=== PATIENT | male | born 1985 | race Caucasian/White ===

== ENCOUNTER 2016-07-06 08:15 | Day surgery (SDC) | payer BC ==
[2016-07-06] VITALS (7 sets, daily range): BP systolic 103–150; BP diastolic 65–96; PULSE 89–113; RESP 15–20; TEMP 97.5–98.8; O2SAT 95–97; Ht 167.6 cm; Wt 89.8 kg
[~2016-07-06] VITALS: Ht 167.6 cm; Wt 89.8 kg
[~2016-07-06 08:15] MED LIST: ALBU8.5H INH; ALPR1TAB7 PO; AMIT10TA6 PO; BUSP7.5T7 PO; LIDOCAINE 1% (10mg/ml) 2ml SDV INJ ONE; LR 1,000 ML IV SCH; MULT-933 PO; PROPOFOL 500mg 50 ML IV ONE
[2016-07-06] MEDS ORDERED: ALFENTANIL 500mcg/ml - 2ml INJECTION ONE (08:21)
--- OUTSIDE RECORDS SUMMARY | 2016-07-06 08:39 | XMS REPORT ---
Author Alexandre Garcia Organization [employer] Address Unknown Phone Unavailable Care Team Providers Care Freight Elevator Erector Name Role Phone Alexandre Lu CP Unavailable Allergies No Known Allergies Problems Problem Type Condition ICD-9 Code Onset Dates Condition Status Problem Anxiety disorder 300.00 Active Problem Chronic headaches 784.0 Active Problem LO (obstructive sleep apnea) 327.23 Active Medications No Known Medications Results No Known Results Summary Purpose eClinicalWorks Submission
--- OUTSIDE RECORDS SUMMARY | 2016-07-06 08:39 | XMS REPORT ---
Author Alexandre Garcia Organization [employer] Address Unknown Phone Unavailable Care Team Providers Care Ict Systems Test Engineer Name Role Phone Alexandre Lu CP Unavailable Allergies No Known Allergies Problems No Known Problems Medications No Known Medications Results No Known Results Summary Purpose eClinicalWorks Submission
--- OUTSIDE RECORDS SUMMARY | 2016-07-06 08:39 | XMS REPORT ---
Author Author Alexandre Lu Organization [employer] Address Unknown Phone Unavailable Care Team Providers Care Trading Specialist Name Role Phone Alexandre Lu CP Unavailable Allergies No Known Allergies Problems No Known Problems Medications No Known Medications Results No Known Results Summary Purpose eClinicalWorks Submission
--- OUTSIDE RECORDS SUMMARY | 2016-07-06 08:39 | XMS REPORT ---
Author Alexandre Garcia Organization [employer] Address Unknown Phone Unavailable Care Team Providers Care Fundraising Sale Representative Name Role Phone Alexandre Lu CP Unavailable Allergies No Known Allergies Problems No Known Problems Medications No Known Medications Results No Known Results Summary Purpose eClinicalWorks Submission
--- OUTSIDE RECORDS SUMMARY | 2016-07-06 08:39 | XMS REPORT ---
Author Alexandre Garcia Organization [employer] Address Unknown Phone Unavailable Care Team Providers Care Pearl Technician Name Role Phone Alexandre Lu CP Unavailable Allergies No Known Allergies Problems No Known Problems Medications No Known Medications Results No Known Results Summary Purpose eClinicalWorks Submission
--- OUTSIDE RECORDS SUMMARY | 2016-07-06 08:39 | XMS REPORT | Referral Summary ---
Author Author [facility] Organization [facility] Address Unknown Phone Unavailable Care Team Providers Care Car Sales Associate Name Role Phone [facility] Valencia Primary Care Physician [phone] Encounter VC Date(s): 03/02/16 - 03/02/16 [facility] [address] [place] [address]- Discharge Diagnosis: MRSA carrier Discharge Diagnosis: MRSA infection Discharge Disposition: 01-Home or Self Care Attending Physician: Newton Valencia DO Admitting Physician: Newton Valencia DO Vital Signs Most recent to 1 oldest [Reference Range]: Temperature Tympanic 36.3 degC [36.6-38.1 degC] *LOW* (03/02/16 2:03 PM) Peripheral Pulse 103 bpm Rate [60-100 bpm] *HI* (03/02/16 2:03 PM) Blood Pressure 124/89 mmHg [90-140/60-90 mmHg] (03/02/16 2:03 PM) Problem List Condition Effective Dates Status Health Status Informant Acute Active appendicitis(Confirm ed) Anxiety(Confirmed) Active Chronic Active appendicitis(Confirm ed) Migraine Active headache(Confirmed) Allergies, Adverse Reactions, Alerts Substance Reaction Severity Status Allergy Seasonal allergies Active cefaclor Anaphylaxis Active ketorolac Eczema (rash) Active Medications amitriptyline 10 mg oral tablet 20 mg 2 tabs, Oral, Daily, # 60 tabs, 1 Refill(s), Pharmacy: [facility], 2 tabs Oral Daily Start Date: 02/07/16 Status: Ordered amitriptyline 10 mg oral tablet 10 mg 1 tabs, Oral, Bedtime (once a day), # 30 tabs, 0 Refill(s), Pharm[facility]: [id number], 1 tabs Oral Bedtime (once a day),x30 days Start Date: 01/21/16 Stop Date: 02/20/16 Status: Ordered Bactrim DS 800 mg-160 mg oral tablet 1 tabs, Oral, BID, X 10 days, # 20 tabs, 0 Refill(s), Pharmacy: [place] [id number] Start Date: 03/02/16 Stop Date: 03/12/16 Status: Ordered Bactroban 2% topical ointment 1 roberto, Topical, TID, # 30 g, 0 Refill(s), Pharmacy: [place] [id number] Start Date: 03/02/16 Stop Date: 03/12/16 Status: Ordered busPIRone 7.5 mg oral tablet 7.5 mg 1 tabs, Oral, Daily, # 30 tabs, 0 Refill(s), other reason (Rx) Start Date: 12/22/15 Stop Date: 01/21/16 Status: Ordered Results No data available for this section Immunizations Vaccine Date Refusal Reason influenza virus vaccine, inactivated 01/21/16 Procedures Procedure Date Related Diagnosis Body Site Laparoscopic appendectomy 2014 Appendectomy Lipoma Surgery1 1septoplasty Social History Social History Type Response Smoking Status Never smoker Assessment and Plan Extracted from: Title: Office Visit Note Author: Newton Valencia DO Date: 03/02/16 Assessment/Plan 1.MRSA infection 1. Clinical finding consistent with folliculitis and carbuncles to the inner thigh. With a positive throat culture for MRSA, this is most likely the cause of his skin infection. 2. Bactrim twice a day for 10 days 3. Bactroban application intranasally 3 times a day for 10 days 4. Follow-up for any new concerns Ordered: Office Visit Level 3 Est 58695 MRSA carrier Pathophysiology of this presentation discussed in detail with the patient. Ordered: mupirocin topical, 1 roberto, Topical, TID, # 30 g, 0 Refill(s), Pharmacy: [place] [id number] sulfamethoxazole-trimethoprim, 1 tabs, Oral, BID, X 10 days, # 20 tabs, 0 Refill(s), Pharmacy: [place] [id number] Office Visit Level 3 Est 48[address]
--- OUTSIDE RECORDS SUMMARY | 2016-07-06 08:39 | XMS REPORT ---
Author Author Alexandre Lu Organization [employer] Address Unknown Phone Unavailable Care Team Providers Care Movement Therapist Name Role Phone Alexandre Lu CP Unavailable Allergies No Known Allergies Problems No Known Problems Medications No Known Medications Results No Known Results Summary Purpose eClinicalWorks Submission
--- OUTSIDE RECORDS SUMMARY | 2016-07-06 08:39 | XMS REPORT ---
Author Alexandre Garcia Organization [employer] Address Unknown Phone Unavailable Care Team Providers Care Friction Paint Machine Tender Name Role Phone Alexandre Lu CP Unavailable Allergies No Known Allergies Problems Problem Type Condition Code Onset Dates Condition Status Problem Anxiety disorder 300.00 Active Problem Chronic headaches 784.0 Active Problem LO (obstructive sleep apnea) 327.23 Active Medications No Known Medications Results No Known Results Summary Purpose eClinicalWorks Submission
--- OUTSIDE RECORDS SUMMARY | 2016-07-06 08:39 | XMS REPORT ---
Author Alexandre Garcia Organization [employer] Address Unknown Phone Unavailable Care Team Providers Care Laundry Tech Name Role Phone Alexandre Lu CP Unavailable Allergies No Known Allergies Problems No Known Problems Medications No Known Medications Results No Known Results Summary Purpose eClinicalWorks Submission
--- OUTSIDE RECORDS SUMMARY | 2016-07-06 08:39 | XMS REPORT | Continuity of Care Document ---
Author Author Celso KUMAR, Soheila Cain Organization Ambulatory Address [facility] [place] [address] Phone Unavailable Care Team Providers Care Design Draftsman Name Role Phone Carlita Zaragozaantonio ALLEN Unavailable Payers Payer name Insurance type Covered democrat ID Authorization(s) Unknown Problems Condition Effective Dates (start - stop) Clinical Status Residual foreign body in soft tissue - *Acute MGRN WO [facility] MGR - *Chronic Urinary Tract Infection - *Acute Family History Family Member Diagnosis Age At Onset Status Unknown Social History Social History Element Description Quantity Unknown Allergies, Adverse Reactions, Alerts Substance Reaction Severity Status KETOROLAC TROMETHAMINE Unknown MONTELUKAST SODIUM Unknown CEFACLOR Unknown Medications Medication Instructions Dosage Effective Dates (start - stop) Status Unknown Immunizations Vaccine Date Status Comments Unknown Results Test Name Date and Time Measure Units Reference Range Abnormal Flag Comments Unknown Vital Signs Date / Time: Height Weight Pulse Rate Blood Pressure Temperature /17:41:00 66.00 in 175.00 lbs 101 /min 132/91 mm[Hg] 98.2 F Procedures Procedure Date Unknown Encounters Encounter Location Date Patient Visit [facility] Care Patient Visit [facility] [facility] Care Patient Visit [facility] Care Advance Directives Directive Effective Date Unknown
--- OUTSIDE RECORDS SUMMARY | 2016-07-06 08:39 | XMS REPORT ---
Author Alexandre Garcia Organization [employer] Address Unknown Phone Unavailable Care Team Providers Care Lacrosse Player Name Role Phone Alexandre Lu CP Unavailable Allergies No Known Allergies Problems Problem Type Condition ICD-9 Code Onset Dates Condition Status Problem Anxiety disorder 300.00 Active Problem Chronic headaches 784.0 Active Problem LO (obstructive sleep apnea) 327.23 Active Medications Medication Code System Code Instructions Start Date End Date Status Dosage amoxicillin NDC 15294 500 mg orally 3 times a day Mar 22, 2014 Active 1 cap(s) Results No Known Results Summary Purpose eClinicalWorks Submission
--- OUTSIDE RECORDS SUMMARY | 2016-07-06 08:40 | XMS REPORT ---
Author Author Alexandre Lu Organization [employer] Address Unknown Phone Unavailable Care Team Providers Care Health Science Specialist Name Role Phone Alexandre Lu CP Unavailable Allergies No Known Allergies Problems Problem Type Condition ICD-9 Code Onset Dates Condition Status Assessment Chronic headaches 784.0 Active Medications No Known Medications Results No Known Results Summary Purpose eClinicalWorks Submission
--- OUTSIDE RECORDS SUMMARY | 2016-07-06 08:40 | XMS REPORT ---
Author Alexandre Garcia Organization [employer] Address Unknown Phone Unavailable Care Team Providers Care Contract Attorney Name Role Phone Alexandre Lu CP Unavailable Allergies No Known Allergies Problems Problem Type Condition ICD-9 Code Onset Dates Condition Status Problem Anxiety disorder 300.00 Active Problem Chronic headaches 784.0 Active Problem LO (obstructive sleep apnea) 327.23 Active Medications Medication Code System Code Instructions Start Date End Date Status Dosage Imitrex [facility] 2333 25 mg orally once a day 1 tab(s) Results No Known Results Summary Purpose eClinicalWorks Submission
--- OUTSIDE RECORDS SUMMARY | 2016-07-06 08:40 | XMS REPORT ---
Author Alexandre Garcia Organization [employer] Address Unknown Phone Unavailable Care Team Providers Care Superintendent Gas Distribution Name Role Phone Alexandre Lu CP Unavailable Allergies No Known Allergies Problems Problem Type Condition ICD-9 Code Onset Dates Condition Status Problem Anxiety disorder 300.00 Active Problem Chronic headaches 784.0 Active Problem LO (obstructive sleep apnea) 327.23 Active Medications No Known Medications Results No Known Results Summary Purpose eClinicalWorks Submission
--- OUTSIDE RECORDS SUMMARY | 2016-07-06 08:40 | XMS REPORT ---
Author Alexandre Garcia Organization [employer] Address Unknown Phone Unavailable Care Team Providers Care Integration Director Name Role Phone Alexandre Lu CP Unavailable Allergies No Known Allergies Problems Problem Type Condition ICD-9 Code Onset Dates Condition Status Problem Anxiety disorder 300.00 Active Problem Chronic headaches 784.0 Active Problem LO (obstructive sleep apnea) 327.23 Active Medications No Known Medications Results No Known Results Summary Purpose eClinicalWorks Submission
--- OUTSIDE RECORDS SUMMARY | 2016-07-06 08:40 | XMS REPORT ---
Author Alexandre Garcia Organization [employer] Address Unknown Phone Unavailable Care Team Providers Care Repair Service Dispatcher Name Role Phone Alexandre Lu CP Unavailable Allergies No Known Allergies Problems Problem Type Condition ICD-9 Code Onset Dates Condition Status Problem Anxiety disorder 300.00 Active Problem Chronic headaches 784.0 Active Problem LO (obstructive sleep apnea) 327.23 Active Medications No Known Medications Results No Known Results Summary Purpose eClinicalWorks Submission
--- OUTSIDE RECORDS SUMMARY | 2016-07-06 08:40 | XMS REPORT ---
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
--- OUTSIDE RECORDS SUMMARY | 2016-07-06 08:40 | XMS REPORT ---
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
--- OUTSIDE RECORDS SUMMARY | 2016-07-06 08:40 | XMS REPORT ---
Author Alexandre Garcia Organization [employer] Address Unknown Phone Unavailable Care Team Providers Care Hoop Maker Helper Machine Name Role Phone Alexandre Lu CP Unavailable Allergies No Known Allergies Problems Problem Type Condition Code Onset Dates Condition Status Problem Anxiety disorder 300.00 Active Problem Chronic headaches 784.0 Active Problem LO (obstructive sleep apnea) 327.23 Active Medications No Known Medications Results No Known Results Summary Purpose eClinicalWorks Submission
--- OUTSIDE RECORDS SUMMARY | 2016-07-06 08:40 | XMS REPORT ---
Author Alexandre Garcia Organization [employer] Address Unknown Phone Unavailable Care Team Providers Care Acid Regenerator Name Role Phone Alexandre Lu CP Unavailable [...]
--- OUTSIDE RECORDS SUMMARY | 2016-07-06 08:40 | XMS REPORT ---
Author Alexandre Garcia Organization [employer] Address Unknown Phone Unavailable Care Team Providers Care Conservation Or Heritage Architect Name Role Phone Alexandre Lu CP Unavailable Allergies No Known Allergies Problems Problem Type Condition ICD-9 Code Onset Dates Condition Status Assessment Soft tissue mass 729.90 Active Problem Anxiety disorder 300.00 Active Problem Chronic headaches 784.0 Active Problem LO (obstructive sleep apnea) 327.23 Active Assessment Fatigue 780.79 Active Assessment Anxiety disorder 300.00 Active Assessment Irritation of nose 478.19 Active Assessment LO (obstructive sleep apnea) 327.23 Active Medications Medication Code System Code Instructions Start Date End Date Status Dosage meloxicam NDC 76462 15 mg orally once a day Feb 03, 2014 Active 1 tab( s) Prednisone taper (40mg start) NDC 68003 10 mg orally Feb 03, 2014 Active 4 daily for 3 days, then 3 daily for 3 days, then 2 daily for 3 days, then 1 daily for 3 days Acetaminophen-Hydrocodone Bitartrate NDC 677 325 mg-5 mg orally every 6 hours as needed severe pain Feb 03, 2014 Active 1 tab(s) Fluticasone Propionate NDC 26145 50 mcg/inh intranasally once a day Jan Active 1 spray(s) Procedures Procedure Coding System Code Date Office/Outpatient Visit-Est CPT-4 05969 Feb 10, 2014 Vital Signs Date/Time: Feb 10, 2014 Temperature 72 F Blood Pressure Diastolic 98 mm Hg Blood Pressure Systolic 142 mm Hg BMI 29.82 Index Height 65.5 in Weight 182 lbs Pulse 98.7 /min Results No Known Results Summary Purpose eClinicalWorks Submission
--- OUTSIDE RECORDS SUMMARY | 2016-07-06 08:40 | XMS REPORT ---
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
--- OUTSIDE RECORDS SUMMARY | 2016-07-06 08:40 | XMS REPORT ---
Author Alexandre Garcia Organization [employer] Address Unknown Phone Unavailable Care Team Providers Care Wind Power Project Manager Name Role Phone Alexandre Lu CP Unavailable Allergies No Known Allergies Problems Problem Type Condition Code Onset Dates Condition Status Problem Anxiety disorder 300.00 Active Problem Chronic headaches 784.0 Active Problem LO (obstructive sleep apnea) 327.23 Active Medications Medication Code System Code Instructions Start Date End Date Status Dosage Truvada [facility] 21473 200 mg-300 mg orally once a day Jun 04, 2015 1 tab (s) Results No Known Results Summary Purpose eClinicalWorks Submission
--- OUTSIDE RECORDS SUMMARY | 2016-07-06 08:41 | XMS REPORT ---
Author Alexandre Garcia Organization [employer] Address Unknown Phone Unavailable Care Team Providers Care Waiter/Waitress Third Class Name Role Phone Alexandre Lu CP Unavailable Allergies No Known Allergies Problems Problem Type Condition Code Onset Dates Condition Status Problem Anxiety disorder 300.00 Active Problem Chronic headaches 784.0 Active Problem LO (obstructive sleep apnea) 327.23 Active Assessment Anxiety disorder 300.00 Active Medications Medication Code System Code Instructions Start Date End Date Status Dosage clonazepam [facility] 34097 0.5 mg orally 3 times a day prn anxiety August 06, 2014 1 tab(s) Results No Known Results Summary Purpose eClinicalWorks Submission
--- OUTSIDE RECORDS SUMMARY | 2016-07-06 08:41 | XMS REPORT ---
Author Alexandre Garcia Organization eClinicalWorks Address Unknown Phone Unavailable Care Team Providers Care Superintendent Plant Protection Name Role Phone Alexandre Lu CP Unavailable Allergies, Adverse Reactions, Alerts Substance Reaction Event Type tramadol Info Not Available Drug Allergy Singulair Info Not Available Drug Allergy Ceclor Info Not Available Drug Allergy Problems Problem Type Condition Code Onset Dates Condition Status Problem Anxiety disorder 300.00 Active Problem Chronic headaches 784.0 Active Problem LO (obstructive sleep apnea) 327.23 Active Assessment High risk medication use Z79.899 Active Assessment Hepatitis B vaccination status unknown Z78.9 Active Assessment Anxiety F41.9 Active Assessment High risk sexual behavior Z72.51 Active Medications Medication Code System Code Instructions Start Date End Date Status Dosage clonazepam [facility] 23242 0.5 mg orally daily as needed for severe anxiety August 06, 2014 1 tab(s) Procedures Procedure Coding System Code Date Hepatitis C AB Test CPT-4 12552 Jun 02, 2015 Automated Hemogram-CBC w/Diff CPT-4 98862 Jun 02, 2015 HIV-1/HIV-2, SINGLE ASSAY CPT-4 81314 Jun 02, 2015 VENIPUNCT, ROUTINE* CPT-4 03298 Jun 02, 2015 Hepatitis B, Surface AG, EIA CPT-4 24801 Jun 02, 2015 Office/Outpatient Visit-Est CPT-4 00549 Jun 02, 2015 Comprehensive Metabolic Panel CPT-4 61152 Jun 02, 2015 Urinalysis, Auto, w/o Scope CPT-4 95945 Jun 02, 2015 Hep B Surface Antibody CPT-4 05737 Jun 02, 2015 Blood Serology, Qualitative CPT-4 41837 Jun 02, 2015 Vital Signs Date/Time: Jun 02, 2015 Temperature 98.2 F Blood Pressure Diastolic 94 mm Hg Blood Pressure Systolic 140 mm Hg BMI 29.40 Index Height 65.5 in Weight 179.4 lbs Pulse 93 /min Results Name Result Date Reference Range Unit Abnormality Flag RPR ----RPR Non Reactive [id number] Non Reactive Hep B Surface Ab Urinalysis Dip Only ----PROTEIN NEGATIVE [id number] NEGATIVE ----BLOOD NEGATIVE [id number] NEGATIVE ----KETONE NEGATIVE [id number] NEGATIVE ----BILIRUBIN NEGATIVE [id number] NEGATIVE ----GLUCOSE NEGATIVE 74737843 NEGATIVE ----LEUKOCYTES NEGATIVE 55878339 NEGATIVE ----COLOR Yellow [id number] ----NITRITE NEGATIVE 53805079 NEGATIVE ----APPEARANCE Clear [id number] CLEAR ----SPECIFIC GRAVITY 1.015 [id number] 1.003 - 1.030 ----UROBILINOGEN 0.2 E.U./dL 99248815 0.2 - 1.0 ----PH 7.0 59459687 4.5 - 8.0 CBC With Differential/Platelet ----MCHC 34.6 [id number] 31.8-35.4 g/dL ----MCH 29.8 12800432 27.0-31.2 PG ----PLT 221 [id number] 142-424 x10^3/UL ----RDW 12.3 66055113 11.6-14.8 % ----HCT 48.6 97113733 43.5-53.7 % ----MCV 86.3 99186492 80.0-97.0 fL ----RBC 5.63 11483078 4.69-6.13 x10^6/UL ----HGB 16.8 42467750 13.5-18.1 g/dL ----WBC 7.1 [id number] 4.6-10.2 x10^3/UL CMP - Comp. Metabolic Panel (14) ----BUN 13 [id number] 7-18 mg/dL ----GLUCOSE 104 43020353 74-108 mg/dL ----CARBON DIOXIDE 32 91796260 21-32 mmol/L ----CHLORIDE 101 51259620 98-107 mmol/L ----CALCIUM 10.0 39175699 8.5-10.1 mg/dL ----BUN/CREAT RATIO 12.6 61213925 12.0-20.0 CALC ----CREATININE 1.03 05459160 0.60-1.30 mg/dL ----GLOBULIN 3.5 22836223 1.5-4.5 g/dL ----A/G RATIO 1.3 20150602 1.1-2.5 CALC ----ALK. PHOSPHATASE 73 20150602 50-136 mg/dL ----ALT (SGPT) 64 20150602 12-78 U/L ----POTASSIUM 3.9 20150602 3.5-5.1 mmol/L ----SODIUM 142 20150602 136-145 mmol/L ----TOTAL PROTEIN 8.1 20150602 6.4-8.2 g/dL ----ALBUMIN 4.6 20150602 3.4-5.0 g/dL ----AST (SGOT) 29 20150602 15-37 U/L ----TOTAL BILIRUBIN 0.40 20150602 0.10-1.00 mg/dL Hep C Antibody Hep B Surface Ag ----HBsAg Screen Negative 20150602 Negative HIV Screen Summary Purpose eClinicalWorks Submission
--- OUTSIDE RECORDS SUMMARY | 2016-07-06 08:41 | XMS REPORT ---
Author Alexandre Garcia Organization [employer] Address Unknown Phone Unavailable Care Team Providers Care Pest Control Worker Helper Name Role Phone Alexandre Lu CP Unavailable Allergies No Known Allergies Problems Problem Type Condition ICD-9 Code Onset Dates Condition Status Problem Anxiety disorder 300.00 Active Problem Chronic headaches 784.0 Active Problem LO (obstructive sleep apnea) 327.23 Active Medications No Known Medications Results No Known Results Summary Purpose eClinicalWorks Submission
--- OUTSIDE RECORDS SUMMARY | 2016-07-06 08:41 | XMS REPORT ---
Author Alexandre Garcia Organization [employer] Address Unknown Phone Unavailable Care Team Providers Care [place] Auditor Name Role Phone Alexandre Lu CP Unavailable Allergies No Known Allergies Problems Problem Type Condition ICD-9 Code Onset Dates Condition Status Problem Anxiety disorder 300.00 Active Problem Chronic headaches 784.0 Active Problem LO (obstructive sleep apnea) 327.23 Active Medications No Known Medications Results No Known Results Summary Purpose eClinicalWorks Submission
--- OUTSIDE RECORDS SUMMARY | 2016-07-06 08:41 | XMS REPORT ---
Author Author Alexandre Lu Organization [employer] Address Unknown Phone Unavailable Care Team Providers Care Salesperson New Cars Name Role Phone Alexandre Lu CP Unavailable Allergies No Known Allergies Problems No Known Problems Medications No Known Medications Results No Known Results Summary Purpose eClinicalWorks Submission
--- OUTSIDE RECORDS SUMMARY | 2016-07-06 08:41 | XMS REPORT ---
Author Alexandre Garcia Organization [employer] Address Unknown Phone Unavailable Care Team Providers Care Shuttle Truck Driver Name Role Phone Alexandre Lu CP Unavailable Allergies No Known Allergies Problems Problem Type Condition ICD-9 Code Onset Dates Condition Status Problem Anxiety disorder 300.00 Active Problem Chronic headaches 784.0 Active Problem LO (obstructive sleep apnea) 327.23 Active Medications Medication Code System Code Instructions Start Date End Date Status Dosage Imitrex [facility] 2333 50 mg orally one at the on set of head ache, may repeat in 2 hours. Do not exceed 4 a day 1 tab(s) Results No Known Results Summary Purpose eClinicalWorks Submission
--- OUTSIDE RECORDS SUMMARY | 2016-07-06 08:41 | XMS REPORT ---
Author Alexandre Garcia Organization [employer] Address Unknown Phone Unavailable Care Team Providers Care Topology Teacher Name Role Phone Alexandre Lu CP Unavailable Allergies No Known Allergies Problems Problem Type Condition ICD-9 Code Onset Dates Condition Status Problem Anxiety disorder 300.00 Active Problem Chronic headaches 784.0 Active Problem LO (obstructive sleep apnea) 327.23 Active Medications No Known Medications Results No Known Results Summary Purpose [employer] Submission
--- OUTSIDE RECORDS SUMMARY | 2016-07-06 08:41 | XMS REPORT ---
Author Alexandre Garcia Organization [employer] Address Unknown Phone Unavailable Care Team Providers Care Cold Strip Roller Name Role Phone Alexandre Lu CP Unavailable [...] Start Date End Date Status Dosage Truvada [facility] [address] 200 mg-300 mg orally once a day Jun 04, 2015 1 tab (s) Results No Known Results Summary Purpose eClinicalWorks Submission
--- OUTSIDE RECORDS SUMMARY | 2016-07-06 08:41 | XMS REPORT ---
Author Alexandre Garcia Organization [employer] Address Unknown Phone Unavailable Care Team Providers Care Catholic Priest Name Role Phone Alexandre Lu CP Unavailable Allergies, Adverse Reactions, Alerts Substance Reaction Event Type tramadol Info Not Available Drug Allergy Singulair Info Not Available Drug Allergy Ceclor Info Not Available Drug Allergy Problems Problem Type Condition ICD-9 Code Onset Dates Condition Status Assessment Chronic headaches 784.0 Active Assessment Fatigue and Malaise 780.79 Active Assessment Abnormal weight gain 783.1 Active Assessment Sweating abnormality 705.89 Active Assessment Anxiety and depression 300.4 Active Medications Medication Code System Code Instructions Start Date End Date Status Dosage Nuvigil MULTUM 827616 150 mg orally once a day Active 1 tab(s) Fioricet MULTUM 1802 325 mg-50 mg-40 mg orally every 4 hours Active 2 tab(s) Procedures Procedure Coding System Code Date Assay of Free Thyroxine CPT-4 55594 Jan 02, 2014 General Health Panel CPT-4 68858 Jan 02, 2014 Office/Outpatient Visit-New CPT-4 79993 Jan 02, 2014 Comprehensive Metabolic Panel CPT-4 00500 Jan 02, 2014 Drawing Blood CPT-4 79370 Jan 02, 2014 Assay Thyroid Stim Hormone CPT-4 15179 Jan 02, 2014 Automated Hemogram-CBC w/Diff CPT-4 38260 Jan 02, 2014 Vital Signs Date/Time: Jan 02, 2014 Temperature 99.0 F Blood Pressure Diastolic 76 mm Hg Blood Pressure Systolic 118 mm Hg Height 65.5 in Weight 176.7 lbs Results No Known Results Summary Purpose eClinicalWorks Submission
--- OUTSIDE RECORDS SUMMARY | 2016-07-06 08:41 | XMS REPORT | Continuity of Care Document ---
Author Author Tanner WATSON, Lawrence Clark Organization Ambulatory Address [address] [place] [address] Phone Care Team Providers Care Billing Associate Name Role Phone Kaylyn Zaragoza PP Unavailable Payers Payer name Insurance type Covered alliance party ID Authorization(s) Unknown Problems Condition Effective Dates (start - stop) Clinical Status Appendicitis - *Acute MGRN WO AURA WO NTRC MGR - *Chronic Otitis media, acute - *Acute Infective rhinitis - *Acute Urinary Tract Infection - *Acute Residual foreign body in soft tissue - *Acute Acute appendicitis - *Acute Cerumen impaction - *Acute 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 Family History Family Member Diagnosis Age At Onset Status Unknown Social History Social History Element Description Quantity Unknown Allergies, Adverse Reactions, Alerts Substance Reaction Severity Status KETOROLAC TROMETHAMINE Unknown MONTELUKAST SODIUM Unknown CEFACLOR Unknown PENICILLINS Hives/Skin Rash Unknown Medications Medication Instructions Dosage Effective Dates (start - stop) Status Unknown Immunizations Vaccine Date Status Comments Unknown Results Test Name Date and Time Measure Units Reference Range Abnormal Flag Comments Unknown Vital Signs Date / Time: Height Weight Pulse Rate Blood Pressure Temperature /12:13:00 66.00 in 182.00 lbs 115 /min 136/89 mm[Hg] 99.8 F Procedures Procedure Date Unknown Encounters Encounter Location Date Patient Visit [facility] Patient Visit [facility] W21 Imm Care Patient Visit [facility] [place] Patient Visit [facility] Care Patient Visit [facility] Patient Visit [facility] Patient Visit [facility] Advance Directives Directive Effective Date Unknown
--- OUTSIDE RECORDS SUMMARY | 2016-07-06 08:42 | XMS REPORT | Referral Summary ---
Author Author [facility], [facility] Organization [facility] Address Unknown Phone Unavailable Care Team Providers Care Supervisor Laboratory Animal Facility Name Role Phone Newton Valencia Primary Care Physician [phone] Encounter Date(s): 02/26/16 - 02/26/16 [facility] [address] [place] [address] Discharge Diagnosis: Cervical lymphadenitis Discharge Diagnosis: Acute pharyngitis Discharge Diagnosis: Acute bronchitis Discharge Disposition: 01-Home or Self Care Attending Physician: Chemo Schafer MD Admitting Physician: Chemo Schafer MD Vital Signs Most recent to 1 oldest [Reference Range]: Temperature Tympanic 36.7 degC [36.6-38.1 degC] (02/26/16 10:02 AM) Peripheral Pulse 103 bpm Rate [60-100 bpm] *HI* (02/26/16 10:02 AM) Blood Pressure 115/70 mmHg [90-140/60-90 mmHg] (02/26/16 10:02 AM) SpO2 97 % (02/26/16 10:02 AM) Problem List Condition Effective Dates Status Health Status Informant Acute Active appendicitis(Confirm ed) Chronic Active appendicitis(Confirm ed) Allergies, Adverse Reactions, Alerts Substance Reaction Severity Status cefaclor Anaphylaxis Active ketorolac Eczema (rash) Active Medications amitriptyline 10 mg oral tablet 20 mg 2 tabs, Oral, Daily, # 60 tabs, 1 Refill(s), Pharmacy: [id number], 2 tabs Oral Daily Start Date: 02/07/16 Status: Ordered amitriptyline 10 mg oral tablet 10 mg 1 tabs, Oral, Bedtime (once a day), # 30 tabs, 0 Refill(s), Pharmacy: [facility] #[id number], 1 tabs Oral Bedtime (once a day),x30 days Start Date: 01/21/16 Stop Date: 02/20/16 Status: Ordered azithromycin 500 mg oral tablet 500 mg 1 tabs, Oral, Daily, # 3 tabs, 0 Refill(s), Pharmacy: [id number], 1 tabs Oral Daily Start Date: 02/26/16 Stop Date: 02/28/16 Status: Ordered busPIRone 7.5 mg oral tablet [...] smoker Assessment and Plan Extracted from: Title: Ambulatory Patient Education Author: Chemo Schafer MD Date: Emergency Medicine Acute Bronchitis Bronchitis is inflammation of the airways that extend from the windpipe into the lungs (bronchi). The inflammation often causes mucus to develop. This leads to a cough, which is the most common symptom of bronchitis. In acute bronchitis, the condition usually develops suddenly and goes away over time, usually in a couple weeks. Smoking, allergies, and asthma can make bronchitis worse. Repeated episodes of bronchitis may cause further lung problems. CAUSES Acute bronchitis is most often caused by the same virus that causes a cold. The virus can spread from person to person (contagious) through coughing, sneezing, and touching contaminated objects. SIGNS AND SYMPTOMS Cough. Fever. Coughing up mucus. Body aches. Chest congestion. Chills. Shortness of breath. Sore throat. DIAGNOSIS Acute bronchitis is usually diagnosed through a physical exam. Your health care provider will also ask you questions about your medical history. Tests, such as chest X-rays, are sometimes done to rule out other conditions. TREATMENT Acute bronchitis usually goes away in a couple weeks. Oftentimes, no medical treatment is necessary. Medicines are sometimes given for relief of fever or cough. Antibiotic medicines are usually not needed but may be prescribed in certain situations. In some cases, an inhaler may be recommended to help reduce shortness of breath and control the cough. A cool mist vaporizer may also be used to help thin bronchial secretions and make it easier to clear the chest. HOME CARE INSTRUCTIONS Get plenty of rest. Drink enough fluids to keep your urine clear or pale yellow (unless you have a medical condition that requires fluid restriction). Increasing fluids may help thin your respiratory secretions (sputum) and reduce chest congestion, and it will prevent dehydration. Take medicines only as directed by your health care provider. If you were prescribed an antibiotic medicine, finish it all even if you start to feel better. Avoid smoking and secondhand smoke. Exposure to cigarette smoke or irritating chemicals will make bronchitis worse. If you are a smoker, consider using nicotine gum or skin patches to help control withdrawal symptoms. Quitting smoking will help your lungs heal faster. Reduce the chances of another bout of acute bronchitis by washing your hands frequently, avoiding people with cold symptoms, and trying not to touch your hands to your mouth, nose, or eyes. Keep all follow-up visits as directed by your health care provider. SEEK MEDICAL CARE IF: Your symptoms do not improve after 1 week of treatment. SEEK IMMEDIATE MEDICAL CARE IF: You develop an increased fever or chills. You have chest pain. You have severe shortness of breath. You have bloody sputum. You develop dehydration. You faint or repeatedly feel like you are going to pass out. You develop repeated vomiting. You develop a severe headache. MAKE SURE YOU: Understand these instructions. Will watch your condition. Will get help right away if you are not doing well or get worse. This information is not intended to replace advice given to you by your health care provider. Make sure you discuss any questions you have with your health care provider. Document Released: 05/24/2005 Document Revised: 05/07/2015 Document Reviewed: [employer] Patient Education 2016 [employer] No follow up information was provided. Extracted from: Title: acute pharnygitis, Author: Chemo Schafer MD Date: 02/26/16 bronchitis Impression and Plan Diagnosis Acute bronchitis (TRK75-DD J20.9, Discharge, Medical). Acute pharyngitis (YYK42-GJ J02.9, Discharge, Medical). Cervical lymphadenitis (WTG48-NM L04.0, Discharge, Medical). Plan: 1) Take the Azithromycin as directed. 2) Throat culture obtained. 3) Rest and symptomatic gargles/OTC meds recommended. 4) Followup as needed.. Orders Orders (Selected) Outpatient Orders Ordered Office Visit Level 4 Est 64415: Future (On Hold) ALT: AST: Prescriptions Prescribed azithromycin 500 mg oral tablet: 500 mg=1 tabs, Oral, Daily, 3 tabs, 0 Refill(s) Discontinued azithromycin 200 mg/5 mL oral liquid: 500 mg=12.5 mL, Oral, Daily, for 3 days, 37.5 mL, 0 Refill(s). Dx/Order Association Plan: Diagnosis: Acute bronchitis Comment: Ordered: Office Visit Level 4 Est 92974; 02/26/16 13:21:00 CDT, Acute pharyngitis | Cervical lymphadenitis | Acute bronchitis Diagnosis: Acute pharyngitis Comment: Ordered: Office Visit Level 4 Est [id number]; 02/26/16 13:21:00 CDT, Acute pharyngitis | Cervical lymphadenitis | Acute bronchitis Diagnosis: Cervical lymphadenitis Comment: Ordered: Office Visit Level 4 Est 47307; 02/26/16 13:21:00 CDT, Acute pharyngitis | Cervical lymphadenitis | Acute bronchitis Additional Orders: Comment: Discontinued: azithromycin 200 mg/5 mL oral liquid,500 mg 12.5 mL, Oral, Daily, X 3 days, # 37.5 mL, 0 Refill(s), Pharmacy: [id number] , 12.5 mL Oral Daily,x3 days End of Orders ."
--- OUTSIDE RECORDS SUMMARY | 2016-07-06 08:42 | XMS REPORT ---
Author Alexandre Garcia Organization [employer] Address Unknown Phone Unavailable Care Team Providers Care Contractor Field Hauling Name Role Phone Alexandre Lu CP Unavailable Allergies No Known Allergies Problems Problem Type Condition ICD-9 Code Onset Dates Condition Status Problem Anxiety disorder 300.00 Active Problem Chronic headaches 784.0 Active Problem LO (obstructive sleep apnea) 327.23 Active Medications No Known Medications Results No Known Results Summary Purpose eClinicalWorks Submission
--- OUTSIDE RECORDS SUMMARY | 2016-07-06 08:42 | XMS REPORT | Referral Summary ---
Author Author [facility], [facility] Organization [facility] Address Unknown Phone Unavailable Care Team Providers Care Energy Broker Name Role Phone Newton Valencia Primary Care Physician [phone] Encounter Date(s): 12/22/15 - 12/22/15 [facility] [place], Family [address] [place] [address] Discharge Disposition: 01-Home or Self Care Attending Physician: Newton Valencia DO Admitting Physician: Newton Valencia DO Vital Signs Most recent to 1 oldest [Reference Range]: Temperature Tympanic 37.1 degC [36.6-38.1 degC] (12/22/15 3:25 PM) Peripheral Pulse 84 bpm Rate [60-100 bpm] (12/22/15 3:25 PM) Blood Pressure 116/71 mmHg [90-140/60-90 mmHg] (12/22/15 3:25 PM) Problem List Condition Effective Dates Status Health Status Informant Acute Active appendicitis(Confirm ed) Chronic Active appendicitis(Confirm ed) Allergies, Adverse Reactions, Alerts Substance Reaction Severity Status cefaclor Anaphylaxis Active ketorolac Eczema (rash) Active Medications amitriptyline 25 mg oral tablet 25 mg 1 tabs, Oral, Bedtime (once a day), # 30 tabs, 0 Refill(s), Pharmacy: [facility] #[id number], 1 tabs Oral Bedtime (once a day),x30 days Start Date: 12/22/15 Stop Date: 01/21/16 Status: Ordered busPIRone 7.5 mg oral tablet 7.5 mg 1 tabs, Oral, Daily, # 30 tabs, 0 Refill(s), other reason (Rx) Start Date: 12/22/15 Stop Date: 01/21/16 Status: Ordered Imitrex 50 mg oral tablet 50 mg 1 tabs, Oral, Daily, as needed for migraine headache, may repeat dose after 2 hours up to a maximum of 200 mg in 24 hours, X 2 days, # 9 tabs, 0 Refill(s), Pharmacy: [facility] #[id number], 1 tabs Oral Daily,x2 days,PRN:as needed for migraine... Start Date: 12/21/15 Stop Date: 12/23/15 Status: Ordered Truvada tabs, Oral, Daily, 0 Refill(s) Start Date: 12/21/15 Status: Ordered Results No data available for this section Immunizations No data available for this section Procedures Procedure Date Related Diagnosis Body Site Laparoscopic appendectomy 2014 Appendectomy Lipoma Surgery1 1septoplasty Social History Social History Type Response Smoking Status Never smoker Assessment and Plan Extracted from: Title: Office Visit Note Author: Newton Valencia DO Date: 12/22/15 Assessment/Plan Anxiety, generalized 1. Continue with buspirone 7.5 mg daily. 2. Follow-up for worsening presentation. Classic migraine 1. We will start him on amitriptyline 25 mg at bedtime. 2. I recommended that he change his diet to gluten-free since doesn't help previously. 3. Avoid triggers. 4. Continue with Imitrex as needed. 5. Follow-up in a month for reevaluation. 6. Recommended transferring records for review. 7. Follow up in a month for reevaluation Ordered: Office Visit Level 3 New 11737 High risk sexual behavior 1. I am not familiar with the use of Truvada for the prevention of HIV and hepatitis C. I will need to research this medication and possibly call infectious disease for further guidance with the use of this medication as preventative measure and with counseling of this patient. Orders: amitriptyline, 25 mg 1 tabs, Oral, Bedtime (once a day), # 30 tabs, 0 Refill(s), Pharmacy: [facility] #[id number], 1 tabs Oral Bedtime (once a day), x30 days busPIRone, 7.5 mg 1 tabs, Oral, Daily, # 30 tabs, 0 Refill(s), other reason ( Rx)
--- OUTSIDE RECORDS SUMMARY | 2016-07-06 08:42 | XMS REPORT ---
Author Alexandre Garcia Organization [employer] Address Unknown Phone Unavailable Care Team Providers Care Skiagrapher Name Role Phone Alexandre Lu CP Unavailable Allergies, Adverse Reactions, Alerts Substance Reaction Event Type tramadol Info Not Available Drug Allergy Singulair Info Not Available Drug Allergy Ceclor Info Not Available Drug Allergy Problems Problem Type Condition ICD-9 Code Onset Dates Condition Status Problem Anxiety disorder 300.00 Active Problem Chronic headaches 784.0 Active Problem LO (obstructive sleep apnea) 327.23 Active Assessment URI, acute 465.9 Active Medications Medication Code System Code Instructions Start Date End Date Status Dosage propranolol NDC 09811 40 mg orally 2 times a day 1 tab(s) Imitrex NDC 2333 25 mg orally once a day 1 tab(s) doxycycline NDC 95252 monohydrate 100 mg orally 2 times a day July 10, 2014 1 cap(s) Procedures Procedure Coding System Code Date Office/Outpatient Visit-Est CPT-4 22286 July 10, 2014 Vital Signs Date/Time: July 10, 2014 Temperature 98.3 F Blood Pressure Diastolic 66 mm Hg Blood Pressure Systolic 104 mm Hg BMI 31.62 Index Height 65.5 in Weight 193 lbs Pulse 96 /min Results No Known Results Summary Purpose eClinicalWorks Submission
--- OUTSIDE RECORDS SUMMARY | 2016-07-06 08:42 | XMS REPORT ---
Author Alexandre Garcia Organization [employer] Address Unknown Phone Unavailable Care Team Providers Care Chef Assistant Name Role Phone Alexandre Lu CP Unavailable Allergies No Known Allergies Problems Problem Type Condition ICD-9 Code Onset Dates Condition Status Problem Anxiety disorder 300.00 Active Problem Chronic headaches 784.0 Active Problem LO (obstructive sleep apnea) 327.23 Active Medications No Known Medications Results No Known Results Summary Purpose eClinicalWorks Submission
--- OUTSIDE RECORDS SUMMARY | 2016-07-06 08:42 | XMS REPORT ---
Author Alexandre Garcia Organization [employer] Address Unknown Phone Unavailable Care Team Providers Care Weight And Balance Control Agent Name Role Phone Alexandre Lu CP Unavailable Allergies No Known Allergies Problems No Known Problems Medications No Known Medications Results No Known Results Summary Purpose eClinicalWorks Submission
--- OUTSIDE RECORDS SUMMARY | 2016-07-06 08:42 | XMS REPORT ---
Author Alexandre Garcia Organization [employer] Address Unknown Phone Unavailable Care Team Providers Care Home Supervisor Name Role Phone Alexandre Lu CP Unavailable Allergies No Known Allergies Problems Problem Type Condition ICD-9 Code Onset Dates Condition Status Problem Anxiety disorder 300.00 Active Problem Chronic headaches 784.0 Active Problem LO (obstructive sleep apnea) 327.23 Active Medications Medication Code System Code Instructions Start Date End Date Status Dosage Imitrex [facility] 2333 25 mg orally one at the on set of head ache, may repeat in 2 hours. Do not exceed 4 a day 1 tab(s) Results No Known Results Summary Purpose eClinicalWorks Submission
--- OUTSIDE RECORDS SUMMARY | 2016-07-06 08:42 | XMS REPORT ---
Author Alexandre Garcia Organization [employer] Address Unknown Phone Unavailable Care Team Providers Care Golf Course Assistant Name Role Phone Alexandre Lu CP Unavailable Allergies No Known Allergies Problems No Known Problems Medications Medication Code System Code Instructions Start Date End Date Status Dosage Topamax MULTUM 6438 50 mg orally at HS Jan 03, 2014 Active 1 tab(s) Results No Known Results Summary Purpose eClinicalWorks Submission
--- OUTSIDE RECORDS SUMMARY | 2016-07-06 08:42 | XMS REPORT ---
Author Alexandre Garcia Organization [employer] Address Unknown Phone Unavailable Care Team Providers Care Curriculum Consultant Name Role Phone Alexandre Lu CP Unavailable Allergies, Adverse Reactions, Alerts Substance Reaction Event Type tramadol Info Not Available Drug Allergy Singulair Info Not Available Drug Allergy Ceclor Info Not Available Drug Allergy Problems Problem Type Condition ICD-9 Code Onset Dates Condition Status Problem Anxiety disorder 300.00 Active Problem Chronic headaches 784.0 Active Problem LO (obstructive sleep apnea) 327.23 Active Assessment Prostatitis 601.9 Active Medications Medication Code System Code Instructions Start Date End Date Status Dosage Imitrex NDC 2333 50 mg orally one at the on set of head ache, may repeat in 2 hours. Do not exceed 4 a day 1 tab(s) Ciprofloxacin Hydrochloride NDC 14759 500 mg orally every 12 hours Dec 1 tab(s) Procedures Procedure Coding System Code Date Office/Outpatient Visit-Est CPT-4 53299 Jan 13, 2015 Urinalysis, Auto, w/o Scope CPT-4 67072 Jan 13, 2015 Vital Signs Date/Time: Jan 13, 2015 Temperature 98.5 F Blood Pressure Diastolic 76 mm Hg Blood Pressure Systolic 112 mm Hg BMI 26.71 Index Height 65.5 in Weight 163 lbs Pulse 90 /min Results Name Result Date Reference Range Unit Abnormality Flag Urinalysis Dip Only Summary Purpose eClinicalWorks Submission
--- OUTSIDE RECORDS SUMMARY | 2016-07-06 08:42 | XMS REPORT | Referral Summary ---
Author Author [facility] Organization [facility] Address Unknown Phone Unavailable Care Team Providers Care Midlevel Provider Name Role Phone Newton Valencia Primary Care Physician [phone] Encounter VC Date(s): 01/21/16 - 01/21/16 [facility] [address] [place] [address]- Discharge Diagnosis: High risk sexual behavior Discharge Diagnosis: High risk medication use Discharge Diagnosis: Migraine Discharge Disposition: 01-Home or Self Care Attending Physician: Newton Valencia DO Admitting Physician: Newton Valencia DO Vital Signs Most recent to 1 oldest [Reference Range]: Temperature Tympanic 35.9 degC [36.6-38.1 degC] *LOW* (01/21/16 8:18 AM) Peripheral Pulse 87 bpm Rate [60-100 bpm] (01/21/16 8:18 AM) Blood Pressure 112/68 mmHg [90-140/60-90 mmHg] (01/21/16 8:18 AM) Problem List Condition Effective Dates Status Health Status Informant Acute Active appendicitis(Confirm ed) Chronic Active appendicitis(Confirm ed) Allergies, Adverse Reactions, Alerts Substance Reaction Severity Status cefaclor Anaphylaxis Active ketorolac Eczema (rash) Active Medications amitriptyline 10 mg oral tablet 10 mg 1 tabs, Oral, Bedtime (once a day), # 30 tabs, 0 Refill(s), Pharmacy: [facility] #[id number], 1 tabs Oral Bedtime (once a day),x30 days Start Date: 01/21/16 Stop Date: 02/20/16 Status: Ordered busPIRone 7.5 mg oral tablet 7.5 mg 1 tabs, Oral, Daily, # 30 tabs, 0 Refill(s), other reason (Rx) Start Date: 12/22/15 Stop Date: 01/21/16 Status: Ordered Truvada tabs, Oral, Daily, 0 Refill(s) Start Date: 12/21/15 Status: Ordered Truvada 200 mg-300 mg oral tablet 1 tabs, Oral, Daily, # 90 tabs, 0 Refill(s), Pharmacy: [facility] Start Date: 01/21/16 Status: Ordered Results Hematology Most recent to 1 oldest [Reference Range]: WBC [4.8-10.8 4.8 10*3/uL 10*3/uL] (01/21/16 9:13 AM) RBC [4.60-6.20] 5.27 (01/21/16 9:13 AM) Hgb [14.0-18.0 16.0 gm/dL gm/dL] (01/21/16 9:13 AM) Hct [42.0-52.0 %] 46.6 % (01/21/16 9:13 AM) MCV [82.0-99.0 fL] 88.4 fL (01/21/16 9:13 AM) MCH [27.0-32.0 pg] 30.4 pg (01/21/16 9:13 AM) MCHC [32.0-36.0 34.3 gm/dL gm/dL] (01/21/16 9:13 AM) RDW [11.5-14.5 %] 12.4 % (01/21/16 9:13 AM) Platelet [150-400 232 10*3/uL 10*3/uL] (01/21/16 9:13 AM) MPV [8.8-14.8 fL] 10.2 fL (01/21/16 9:13 AM) Immature 0.2 % Granulocytes (01/21/16 9:13 AM) [0.0-1.0 %] Neutrophils [51-75 50 % %] *LOW* (01/21/16 9:13 AM) Lymphocytes [20-46 31 % %] (01/21/16 9:13 AM) Monocytes [4-11 %] 16 % *HI* (01/21/16 9:13 AM) Eosinophils [0-4 %] 4 % (01/21/16 9:13 AM) Basophils [0-2 %] 0 % (01/21/16 9:13 AM) Neutro Absolute 2.37 10*3 [1.90-7.00 10*3] (01/21/16 9:13 AM) Lymph Absolute 1.46 10*3 [0.80-3.30 10*3] (01/21/16 9:13 AM) Avery Absolute 0.74 10*3 [0.30-1.00 10*3] (01/21/16 9:13 AM) Eos Absolute 0.17 10*3 [0.00-0.50 10*3] (01/21/16 9:13 AM) Baso Absolute 0.01 10*3 [0.00-0.20 10*3] (01/21/16 9:13 AM) Chemistry Most recent to 1 oldest [Reference Range]: Sodium Lvl [135-144 141 mEq/L mEq/L] (01/21/16 9:13 AM) Potassium Lvl 4.2 mEq/L [3.5-5.2 mEq/L] (01/21/16 9:13 AM) Chloride [99-111 104 mEq/L mEq/L] (01/21/16 9:13 AM) CO2 [23-31 mEq/L] 30 mEq/L (01/21/16 9:13 AM) AGAP [3-20] 7 (01/21/16 9:13 AM) BUN [9-21 mg/dL] 15 mg/dL (01/21/16 9:13 AM) Glucose Lvl [70-99 83 mg/dL mg/dL] (01/21/16 9:13 AM) Creatinine Lvl 0.96 mg/dL [0.72-1.25 mg/dL] (01/21/16 9:13 AM) eGFR [>60 mL/min] >60 mL/min 1 (01/21/16 9:13 AM) Calcium Lvl 10.1 mg/dL [8.9-10.5 mg/dL] (01/21/16 9:13 AM) Albumin Lvl [3.5-5.0 4.6 gm/dL gm/dL] (01/21/16 9:13 AM) Total Protein 7.0 gm/dL [6.1-7.7 gm/dL] (01/21/16 9:13 AM) Globulin [1.8-4.0 2.4 gm/dL gm/dL] (01/21/16 9:13 AM) ALT [0-55 U/L] 81 U/L *HI* (01/21/16 9:13 AM) AST [5-34 U/L] 46 U/L *HI* (01/21/16 9:13 AM) Alk Phos [40-150 81 U/L U/L] (01/21/16 9:13 AM) Bili Total [0.2-1.2 0.7 mg/dL mg/dL] (01/21/16 9:13 AM) Chol [0-199 mg/dL] 204 mg/dL *HI* (01/21/16 9:13 AM) Trig [0-149 mg/dL] 176 mg/dL *HI* (01/21/16 9:13 AM) HDL [40-84 mg/dL] 42 mg/dL (01/21/16 9:13 AM) LDL [0-130 mg/dL] 127 mg/dL (01/21/16 9:13 AM) VLDL Cholesterol 35 mg/dL [0-28 mg/dL] *HI* (01/21/16 9:13 AM) Cardiac Risk 4.9 [0.0-5.7] (01/21/16 9:13 AM) Hep C Ab Negative (01/21/16 9:13 AM) Hep B Core IgM Negative (01/21/16 9:13 AM) HIV 1 and 2 Abs Negative (01/21/16 9:13 AM) 1Result Comment: Multiply eGFR results by 1.21 for race. Immunizations Vaccine Date Refusal Reason influenza virus vaccine, inactivated 01/21/16 Procedures Procedure Date Related Diagnosis Body Site Collection of venous blood by venipuncture 01/21/16 Laparoscopic appendectomy 2014 Appendectomy Lipoma Surgery1 1septoplasty Social History Social History Type Response Smoking Status Never smoker Assessment and Plan Extracted from: Title: Office Visit Note Author: Newton Valenica DO Date: 01/21/16 Assessment/Plan High risk medication use 1. We discussed the use of Truvada in detail. 2. Clinical pharmacist consulted to farther educate patient on the use of this medication, indication and adverse effects. 3. If he is in a stable relationship with him and his partners being HIV negative then there may not be good reason to continue with this medications. Patient was agreeable. 4. CMP order. As long as he is on this medication he will need labs every 3 months to follow his liver and renal function in addition to retesting him for HIV. Ordered: Office Visit Level 4 Est 28952 High risk sexual behavior 1. Recommended testing of HIV, Hep-C and Hep-B. 2. CBC and CMP 3. Recommended decreasing sexual partners to decrease his risk for infections. Patient voices understanding. Ordered: Office Visit Level 4 Est 28146 Migraine Ordered: Office Visit Level 4 Est 82048 Need for influenza vaccination Ordered: Office Visit Level 4 Est 01632
--- OUTSIDE RECORDS SUMMARY | 2016-07-06 08:42 | XMS REPORT ---
Author Alexandre Garcia Organization [employer] Address Unknown Phone Unavailable Care Team Providers Care Ground Service Equipment Mechanic Name Role Phone Alexandre Lu CP Unavailable Allergies No Known Allergies Problems Problem Type Condition ICD-9 Code Onset Dates Condition Status Problem Anxiety disorder 300.00 Active Problem Chronic headaches 784.0 Active Problem LO (obstructive sleep apnea) 327.23 Active Medications No Known Medications Results No Known Results Summary Purpose [employer] Submission
--- OUTSIDE RECORDS SUMMARY | 2016-07-06 08:43 | XMS REPORT | Continuity of Care Document ---
Author Author [facility] Organization [facility] Address Unknown Phone Unavailable Allergies Active Description Code Type Severity Reaction Onset Reported/Identified Relationship to Patient Clinical Status Yes ketorolac Drug Allergy Eczema (rash) 11/28/2011 Yes ketorolac Drug Allergy N/A Eczema (rash) 11/28/2011 Yes Ceclor Drug Allergy Severe Anaphylaxis 06/19/2013 Yes Toradol Drug Allergy N/A Adverse Reaction 06/19/2013 Yes cefaclor NKMA N/A Anaphylaxis 08/27/2013 Yes ketorolac NKMA N/A Eczema (rash) 08/27/2013 Yes No Known Allergies No Known Allergies Drug Allergy Unknown N/A 02/02/2014 Yes penicillin NKMA N/A Hives/Skin Rash 02/17/2014 Yes Allergy 70164 N/A [id number] 02/29/2016 Medications Problems Date Dx Coded Attending Type Code Diagnosis Diagnosed By 01/10/2012 Kaylyn Zaragoza MD Final 562.10 COLON DIVERTICULOSIS 01/10/2012 Kaylyn Zaragoza MD 569.42 ANAL OR RECTAL PAIN 01/10/2012 Kaylyn Zaragoza MD Admitting 787.91 DIARRHEA 06/19/2013 Philip Freitas MD Final 540.9 ACUTE APPENDICITIS NOS 06/19/2013 Philip Freitas MD 541 APPENDICITIS NOS 06/19/2013 Philip Freitas MD Final 542 OTHER APPENDICITIS Procedures Code Description [place] [address] LAPAROSCOPY, APPENDECTOMY Tej Hill MD 06/19/2013 Results Encounters ACCT No. Visit Date/Time Discharge Status Pt. Type Provider Facility Loc./Unit Complaint [id number] 06/19/2013 14:55:00 2013 13:30:00 DIS Outpatient Philip Freitas MD [facility] [address] [facility] [id number] 01/10/2012 06:24:00 2011 23:59:59 CLS Outpatient Nik WATSON, Kaylyn Colvin [facility] on [address]
--- OUTSIDE RECORDS SUMMARY | 2016-07-06 08:43 | XMS REPORT | Continuity of Care Document ---
Author Author Tej Hill MD Organization Ambulatory Address [address] [place] [address] Phone Care Team Providers Care Matting Press Tender Name Role Phone Kaylyn Zaragoza PP Unavailable Payers Payer name Insurance type Covered libertarian ID Authorization(s) Unknown Problems Condition Effective Dates (start - stop) Clinical Status Acute appendicitis - *Acute MGRN WO AURA WO NTRC MGR - *Chronic Otitis media, acute - *Acute Infective rhinitis - *Acute Urinary Tract Infection - *Acute Residual foreign body in soft tissue - *Acute Appendicitis - *Acute Cerumen impaction - *Acute Attention [...] Height Weight Pulse Rate Blood Pressure Temperature /14:32:00 66.00 in 182.00 lbs 88 /min 140/90 mm[Hg] 97.7 F Procedures Procedure Date Unknown Encounters Encounter Location Date Patient Visit [facility] FC Surg Patient Visit [facility] W21 Imm Care Patient Visit [facility] Patient Visit [facility] Imm Care Patient Visit [facility] Mur Imm Care [facility] Imm Care Patient Visit [facility] Advance Directives Directive Effective Date Unknown
--- OUTSIDE RECORDS SUMMARY | 2016-07-06 08:43 | XMS REPORT | Referral Summary ---
Author Author [facility] Organization [facility] Address Unknown Phone Unavailable Care Team Providers Care Energy Conservation Representative Name Role Phone AlyEduardo Primary Care Physician [phone] Encounter Date(s): 12/21/15 - 12/21/15 [facility] [address] [place] [id number] Discharge Diagnosis: Migraine Discharge Disposition: 01-Home or Self Care Attending Physician: Tone Velasquez PA-C Admitting Physician: Tone Velasquez PA-C Vital Signs Most recent to 1 oldest [Reference Range]: Temperature Tympanic 36.9 degC [36.6-38.1 degC] (12/21/15 4:00 PM) Peripheral Pulse 91 bpm Rate [60-100 bpm] (12/21/15 4:00 PM) Blood Pressure 132/80 mmHg [90-140/60-90 mmHg] (12/21/15 4:00 PM) SpO2 98 % (12/21/15 4:00 PM) Problem List Condition Effective Dates Status Health Status Informant Acute Active appendicitis(Confirm ed) Chronic Active appendicitis(Confirm ed) Allergies, Adverse Reactions, Alerts Substance Reaction Severity Status cefaclor Anaphylaxis Active ketorolac Eczema (rash) Active Medications busPIRone Oral, 0 Refill(s) Start Date: 12/21/15 Status: Ordered Imitrex 50 mg oral tablet 50 mg 1 tabs, Oral, Daily, as needed for migraine headache, may repeat dose after 2 hours up to a maximum of 200 mg in 24 hours, X 2 days, # 9 tabs, 0 Refill(s), Pharmacy: [facility] #[id number], 1 tabs Oral Daily,x2 days,PRN:as needed for migraine... Start Date: 12/21/15 Stop Date: 8/25/16 Status: Ordered propranolol 40 mg oral tablet tabs, Oral, BID, 0 Refill(s) Start Date: 02/17/14 Status: Ordered Truvada tabs, Oral, Daily, 0 Refill(s) Start Date: 12/21/15 Status: Ordered Results No data available for this section Immunizations No data available for this section Procedures Procedure Date Related Diagnosis Body Site Laparoscopic appendectomy 2014 Appendectomy Lipoma Surgery1 1septoplasty Social History Social History Type Response Smoking Status Never smoker Assessment and Plan Extracted from: Title: headache Author: Tone Velasquez PA-C Date: 12/21/15 Assessment/Plan Migraine Patient was prescribed sumatriptan. Diagnosis and treatment discussed. Patient advised to follow up with PCP; I recommendedfinding a local physician. Patient stable upon discharge, alert and orientated with no apparent distress, and indicated understanding of discharge instructions. If symptoms worsen, patient will go to the nearest ER for further evaluation. . Orders: SUMAtriptan, 50 mg 1 tabs, Oral, Daily, as needed for migraine headache, may repeat dose after 2 hours up to a maximum of 200 mg in 24 hours, X 2 days, # 3 tabs, 0 Refill(s), Pharmacy: [facility] #[id number], 1 tabs Oral Daily,x2 days,PRN:as needed for migraine...
--- OUTSIDE RECORDS SUMMARY | 2016-07-06 08:44 | XMS REPORT ---
Author Alexandre Garcia Organization [employer] Address Unknown Phone Unavailable Care Team Providers Care Delivery Supervisor Name Role Phone Alexandre Lu CP [...] Start Date End Date Status Dosage Truvada [facility] [id number] 200 mg-300 mg orally once a day Jun 04, 2015 1 tab (s) Results No Known Results Summary Purpose [employer] Submission
--- OUTSIDE RECORDS SUMMARY | 2016-07-06 08:44 | XMS REPORT ---
Author Alexandre Garcia Organization [employer] Address Unknown Phone Unavailable Care Team Providers Care Animal Feeder Name Role Phone Alexandre Lu CP Unavailable [...]
--- OUTSIDE RECORDS SUMMARY | 2016-07-06 08:44 | XMS REPORT ---
Author Author Alexandre Lu Organization [employer] Address Unknown Phone Unavailable Care Team Providers Care Show Girl Name Role Phone Alexandre Lu CP Unavailable Allergies No Known Allergies Problems No Known Problems Medications No Known Medications Results No Known Results Summary Purpose [employer] Submission
--- NOTE | 2016-07-06 10:23 | ANESPO ---
Post-Op Note Date 07/06/16 Time: 10:22 Status Pt Participated in Evaluation: Pt participated in person Vital Signs Date Time Temp Pulse Resp B/P Pulse Ox O2 Delivery O2 Flow Rate FiO2 07/06/16 10:10 92 15 124/82 96 Room Air 07/06/16 09:44 97.5 5.00 Respiratory Function: Airway patent, Regular respirations Cardiovascular Function: Regular pulse Mental Status: Alert/oriented Pain Level Intensity: 0 Unable to Assess Pain Due To: Medicated/Sleeping Hydration: Taking po fluids Complications during Recovery None apparent Follow-Up Instructions Instructions Per Surgeon YVROSE FREEMAN CRNA Jul 06, 2016 10:23
--- NOTE | 2016-07-06 15:45 | OPNOTEF ---
DATE OF PROCEDURE 07/06/2016 SURGEON Torin Markham MD PREOPERATIVE DIAGNOSIS Colorectal cancer surveillance/family history of colon cancer/personal history of colon polyps. POSTOPERATIVE DIAGNOSIS Colorectal cancer surveillance/family history of colon cancer/personal history of colon polyps, colonic polyp x1 located at 20 cm from the anal verge. PROCEDURE Colonoscopy with polypectomy via hot forceps technique x1. ANESTHESIA TIVA BRIEF HISTORY/INDICATIONS Sal is a 30-year-old male patient of mine who had a colonoscopy at a young age due to constipation. He was found to have precancerous polyps at that time and it was recommended that he get a repeat colonoscopy in five years. Of note, he also has two grandparents who of colorectal cancer. Please refer to his chart for the details. FINDINGS Upon colonoscopy there was no evidence for angiodysplastic lesions, diverticula or kamla malignancies. The patient was found to have one colonic polyp. This polyp was located at 20 cm from the anal verge. This polyp was about 5-6 mm in diameter and was removed via hot forceps technique and sent to pathology. DESCRIPTION OF PROCEDURE After informed consent was obtained, the patient was brought to the endoscopy suite and placed on the table in the left lateral decubitus position. The patient subsequently underwent total intravenous anesthesia by the nurse barrel lathe operator per my request. Next, a digital rectal examination was performed; normal sphincter tone. No rectal masses were appreciated. An Olympus colonoscope was inserted in the anus and advanced with the lumen of the colon under direct visualization at all times until the cecum was ascertained. Triangulation of the tenia coli, ileocecal valve and appendiceal lumen were all visualized. The scope was then slowly withdrawn, again while maintaining visualization of the lumen at all times. As stated above, the entire colon was without evidence for angiodysplastic lesions , diverticula, or kamla malignancies. The patient was found to have one colonic polyp as described above. This polyp was located at 20 cm from the anal verge and was removed via hot forceps technique and sent to pathology. Photographs were obtained for documentation. The scope continued to be withdrawn until it was removed from the patient's anal verge. The patient tolerated the procedure without difficulty and was sent back to the preoperative area in stable condition. We will await the biopsy results to make further recommendations. As long as this is a tubular adenoma or a hyperplastic polyp we will be looking at five years. [facility]
== END 2016-07-06 10:45 | disposition home or self-care (01) ==
LOC: NSC 08:15
PROVIDERS: ATTEND Family Medicine
DX: Z12.11 Encounter for screening for malignant neoplasm of colon (principal); D12.6 Benign neoplasm of colon, unspecified; Z86.010 Personal history of colon polyps; Z80.0 Family history of malignant neoplasm of digestive organs; F32.9 Major depressive disorder, single episode, unspecified; F41.9 Anxiety disorder, unspecified; G47.30 Sleep apnea, unspecified; Z79.899 Other long term (current) drug therapy